=== PATIENT | female | born 1970 | race Caucasian/White ===

== ENCOUNTER 2017-12-25 06:17 | Day surgery (SDC) | payer OTHER ==
[2017-12-19 14:38] LABS: Absolute Lymphocytes (CBC) 1.9 K/uL (0.7-4.9); Absolute Monocytes 0.3 K/uL (0.1-1.3); Absolute Neutrophil 2.9 K/uL (1.8-8.0); Basophils % 0.8 % (0-1.3); Eosinophils % 1.7 % (0-4.4); Hematocrit 34.5 % (36.0-45.0); Lymphocytes % 35.9 % (15.3-44.8); MCH 25.2 pg (27.0-35.0); MCV 82.1 fL (80-100); MPV 8.7 fL (7.6-11.3); Monocytes % 6.5 % (3.3-12.3)
[~2017-12-25 06:17] MED LIST: CEFAZOLIN/SWI 2gm 2 GM/20 ML SYR IV SCH
[2017-12-25] MEDS ORDERED: Ringers Lactate 1,000 ML IV ONE ×2 (06:37→09:35)
[2017-12-25] MEDS ORDERED: SCOPOLAMINE HYDROBROMIDE PATCH TD ONE (06:37)
[2017-12-25] MEDS ORDERED: PROPOFOL 200 MG/20 ML VIAL IV ONE (07:00)
[2017-12-25] MEDS ORDERED: ROCURONIUM 50 MG/5 ML VIAL IV ONE (07:01)
[2017-12-25] MEDS ORDERED: GLYCOPYRROLATE 0.2 MG/ML SYR ONE (07:02)
[2017-12-25] MEDS ORDERED: FENTANYL CITR 250 MCG/5 ML ONE (07:02)
[2017-12-25] MEDS ORDERED: LIDOCAINE 2% MPF 5 ML VIAL ONE (07:02)
[2017-12-25] MEDS ORDERED: MIDAZOLAM HCL 2 MG/2 ML INJ ONE (07:03)
[2017-12-25] MEDS ORDERED: ONDANSETRON HCL 40 MG/20 ML VIAL ONE (07:05)
[2017-12-25] MEDS ORDERED: NEOSTIGMINE 1 MG/ML -5 ML SYRINGE ONE (07:05)
[2017-12-25] MEDS ORDERED: KETOROLAC 30 MG/ML INJ ONE (09:18)
[2017-12-25] MEDS: MEPERIDINE HCL 50 MG/ML AMP ONE ×4 (09:56→10:18)
[2017-12-25] MEDS ORDERED: MORPHINE 4 MG/ML SYR ONE (10:28)
[2017-12-25] MEDS ORDERED: HYDROCODONE/APAP 5/325 MG TAB ONE (11:12)
--- NOTE | 2017-12-26 02:10 | OP ---
Date of Procedure: 12/25/2017 Surgeon: Rekha Flores MD Time Broker: Anna Hurley. Preoperative Diagnoses: Heavy menstrual bleeding, dysmenorrhea, iron deficiency anemia due to chroni c blood loss. Postoperative Diagnoses: Heavy menstrual bleeding, dysmenorrhea, iron deficiency anemia due to chron ic blood loss, stage IV endometriosis and leiomyomata. Procedures Performed: 1.Diagnostic hysteroscopy. 2.Ablation with HTA. 3.Diagnostic laparoscopy, bilateral salpingectomy. 4.Drainage of right ovarian endometrioma and resection of endometriosis at the right tube. Anesthesia: General endotracheal. Estimated Blood Loss: Minimal. Specimens: Bilateral tubes and endometriosis on the right tube. Complications: No complications. Drains: No drains. Condition: The patient's condition stable. Findings: 1.Anterior abdominal wall with abdominoplasty. Supraumbilical incision was made, but abdominal entr y was tough. 2.Right ovarian endometrioma was seen, this was drained. 3.The right uterosacral ligament had endometriosis, which was adhered to the medial aspect of the ri ght ovary. Once this was detached, cauterization of the medial wall of the ovary was done to achieve hemostasis, was extremely difficult to peel off the cyst wall without taking the entire ovary down. There was endometriosis on the right lateral wall along the right ureter and this would need ureteri c dissection to separate the ovary from it and the patient has not been consented for procedures, ext ensive discussed. Then left uterosacral ligament and endometriosis as well, not dense at the right s elfego. The left ovary was free as well as the tube. The right tube was dense and adhered with proxima l tubal endometriosis and endometriosis on the right utero-ovarian ligament. The rectosigmoid that w as pulled superiorly starting to obliterated the posterior cul-de-sac and this rectosigmoid was pulle d up to area of the right uterosacral, mostly more medial to it likely from posterior cul-de-sac endo metriosis. The patient's bowel was not prepped at this time. Then, fibroids were seen both in the a nterior and posterior wall. Description Of Procedure: After informed consent was verified, the patient was taken back to the OR, 1 g of Ancef was given. She was placed in dorsal lithotomy position and general anesthesia was give n. Her arms were tucked by the side. Pelvic exam was performed. Uterus was found to be anteflexed. Slight decreased mobility. No other nodularity was appreciated at this time and no adnexal masses. Entire abdomen, vulva, vagina and perineum were prepped and draped in a sterile fashion. Pierce was p laced to drain the bladder. Cervix was exposed with a bivalve speculum anterior lip grasped with 2 A llis clamps. Cervix dilated to 10-Telugu. Then, using the primed HTA sheath, direct hysteroscopy wa s performed through the cervical canal into the uterine cavity. The cavity was empty. Both tubal os tia were well visualized. After positioning the tip of the scope in the center of the uterine cavity , the posterior fornix was packed with 2 Ray-Tecs, anterior Allis clipped onto the HTA sheath. Cavit y integrity test was done and it passed HTA, heating cycle followed by 10 minute ablation cycle and 1 .5 minutes cooling cycle were conducted with 1 interruption during the ablation cycle where there was tissue occlusion in the outflow tubing. Once this was corrected, the ablation was restarted without any delay. Thorough irrigation and suction of the uterine cavity were done with diagnostic hysteros copy, post ablation. There was an excellent burn in the entire uterine cavity. The scope was pulled out. Diagnostic VCare was introduced and set in place. After the Pierce was attached to the drainage bag this area was draped. A 1 cm supraumbilical incision was made. The choice was made due to the fact that the umbilicus appe ared to be at least 3 cm deep with pucker being tucked in for 5 minutes infraumbilical incision which is go through the skin fold over the umbilicus. So, 1.5 cm midline supraumbilical incision was made using the open laparoscopy technique. Fascia was exposed and incised. There were multiple layers o f the fascia. There was a permanent suture that had to be removed at this location in order for me t o get down to the lowest level of the fascia. Once this was incised the fascia layers were tagged wi th the help of a 0 Vicryl on each side. This was CT-2 needle. Peritoneum was entered bluntly and re tractors placed in the peritoneal cavity. Mariella was introduced. Site of entry was checked and was unremarkable. Upper abdominal surfaces inspected. No endometriosis was seen. The patient was place d in [place]. The left ovary and tube appeared to be free and normal. The uterus with fibroids. The left ureter undisplaced on the right side. Utero-ovarian ligament was shrunk. Distal uterosacral at tachment was to the uterus. The ureter was pulled lateral to this; however, there were endometriotic implants underneath over the course of the ureter on the pelvic peritoneum. There is cul-de-sac obli teration as dictated above as well as implants on the left uterosacral as well. There was hydrosalpi nx on the right side. There was endometriosis on the medial aspect of the tube and between the tube and the utero-ovarian ligament. The utero-ovarian ligament was shrunken from scar tissue. There was an endometrioma at the right outside of the ovarian capsule or just within it; however, this was drai fernanda. This was about 2.5 cm to 3 cm and this was drained chocolate colored fluid. The ovary was atte mpted to be dissected off from the medial aspect of the uterus and the uterosacral ligament. This wa s carefully taken down enough to able to completely evacuate the endometrioma. This was cauterized f or hemostasis. The adhesions between the tube and the medial aspect of the uterus as well as the utero-ovarian ligam ent and the ovary were all taken down with sharp dissection with scissors. Once this whole tube was r eleased, I was able to take it and starting the distal dissection near the fimbriated end, pineda swan came on to the tube and this was taken down from the medial aspect again and the entire tube was detached on the medial aspect of the tube and the specimen was placed in the anterior cul-de-sac. On the opposite side, the tube was free, so distally fimbriated end, dissection was started and taken al l the way to the cornual end and the tube was also placed in the anterior cul-de-sac. After taking an endometriosis and making sure that there was no electrical, mechanical or thermal injury to the uret er, decided not to remove the endometriosis because this was not the time to do this procedure withou t getting the consent and prepping the patient's bowel, so thorough irrigation and suction were perfo rmed. Both specimens were retrieved through the umbilical port after changing the 5 mm scope. All t rocars were removed under direct vision. There was excellent hemostasis. Mariella was removed after d esufflation was done. The fascia was closed with the help of 2-0 PDS sutures, 1 deep [id number] and the superficial [id number] layers for bringing together all different layers of the fascia were brought together with abdominoplasty. Then, the skin incisions were all closed with the help of 4-0 Monocryl sutures interrupted and VCare and Pierce were removed. Instrument, needle, and sponge c ounts x3 were correct in the case. The patient tolerated the procedure well. EBL was minimal. She was taken to PACU in stable condition. She has a 1 week follow up with me. TONO/HANNAH Voice ID: [id number] Report ID: [id number]
== END 2017-12-25 11:50 | disposition home or self-care (01) ==
LOC: OR 06:17
PROVIDERS: ATTEND Obstetrics & Gynecology
PROC: 0UB54ZZ Excision of Right Fallopian Tube, Percutaneous Endoscopic Approach (ICD-10-PCS; 2017-12-25)
PROC: 0UT74ZZ Resection of Bilateral Fallopian Tubes, Percutaneous Endoscopic Approach (ICD-10-PCS; principal; 2017-12-25 07:30)
PROC: 0U5B8ZZ Destruction of Endometrium, Via Natural or Artificial Opening Endoscopic (ICD-10-PCS; 2017-12-25 07:30)
PROC: 0U904ZX Drainage of Right Ovary, Percutaneous Endoscopic Approach, Diagnostic (ICD-10-PCS; 2017-12-25 07:30)
DX: N92.1 Excessive and frequent menstruation with irregular cycle (principal); N94.6 Dysmenorrhea, unspecified; N80.2 Endometriosis of fallopian tube; N80.1 Endometriosis of ovary; D25.9 Leiomyoma of uterus, unspecified; D50.0 Iron deficiency anemia secondary to blood loss (chronic); G47.33 Obstructive sleep apnea (adult) (pediatric); E78.5 Hyperlipidemia, unspecified; Z98.84 Bariatric surgery status; Z90.49 Acquired absence of other specified parts of digestive tract
CPT/HCPCS: 36415; 81025; 85025; 88302; J0690; J2175; J2250; J2405; J2710

== ENCOUNTER 2019-03-04 10:00 | Emergency (ER) | payer OTHER ==
--- OUTSIDE RECORDS SUMMARY | 2019-03-04 10:02 | XMS REPORT ---
:1970 Author Organization [employer] Care Team Providers Name Role Phone Nitesh Rowe Provider Role Unavailable Allergies No Known Allergies Problems Problem Type Condition Code Onset Dates Condition Status Problem Primary osteoarthritis of left knee M17.12 Active Medications No Known Medications Results No Known Results Summary Purpose eClinicalWorks Submission
--- OUTSIDE RECORDS SUMMARY | 2019-03-04 10:02 | XMS REPORT ---
:1970 Author Organization [employer] Care Team Providers Name Role Phone Nitesh Rowe Provider Role Unavailable Allergies No Known Allergies Problems No Known Problems Medications No Known Medications Results No Known Results Summary Purpose [employer]ClinicalWorks Submission
--- OUTSIDE RECORDS SUMMARY | 2019-03-04 10:02 | XMS REPORT ---
:1970 Author Organization [employer] Care Team Providers Name Role Phone Nitesh Rowe Provider Role Unavailable Allergies, Adverse Reactions, Alerts Substance Reaction Event Type N.K.D.A. Info Not Available Non Drug Allergy Problems Problem Type Condition Code Onset Dates Condition Status Assessment Tear of medial meniscus of left S83.242A Active knee, current, unspecified tear type, initial encounter Problem Primary osteoarthritis of left M17.12 Active knee Assessment Acute pain of left knee M25.562 Active Assessment Primary osteoarthritis of left M17.12 Active knee Medications Medication Code Code Instructions Start End Date Status Dosage System Date Lyndsay [facility] 95606436922 7.5 MG Orally Aug 05September 04, Active 1 tablet Once a day 2018 [address] [facility] 49632970422 10 MG Orally Aug 05, Active 1 tablet at Once a day 2019 bedtime as needed Results No Known Results Summary Purpose eClinicalWorks Submission
--- OUTSIDE RECORDS SUMMARY | 2019-03-04 10:02 | XMS REPORT ---
[...] Medications Medication Code Code Instructions Start End Status Dosage System Date Date Cyclobenzaprine ND 0 Active not HCl defined Ambien [facility] 65209472545 10 MG Orally Aug 05, Active 1 tablet Once a day 2018 at bedtime as needed Losartan Potassium [facility] [address]-92 Active not defined Orilissa [facility] [address]-31 Active not defined Tramadol HCl [facility] 25065598688 50 MG Orally September Active 1 tablet every 6 hrs , as needed 2018 Results No Known Results Summary Purpose eClinicalWorks Submission
--- OUTSIDE RECORDS SUMMARY | 2019-03-04 10:02 | XMS REPORT ---
:1970 Author Organization [employer] Care Team Providers Name Role Phone Nitesh Rowe Provider Role Unavailable Allergies, Adverse Reactions, Alerts Substance Reaction Event Type N.K.D.A. Info Not Available Non Drug Allergy Problems Problem Type Condition Code Onset Dates Condition Status Assessment Pain in joint of left knee M25.562 Active Assessment Pain in joint of left foot M25.572 Active Assessment Tear of medial meniscus of left S83.242A Active knee, current, unspecified tear type, initial encounter Assessment Plantar fasciitis of left foot M72.2 Active Medications Medication Code Code Instructions Start End Date Status Dosage System Date Lyndsay [facility] 49153143446 7.5 MG Orally Aug 05September 04, Active 1 tablet Once a day 2018 2018 [place] 53821621050 10 MG Orally Aug 05, Active 1 tablet at Once a day 2019 bedtime as needed Results Name Result Date Reference Range Unit Abnormality Flag MRI : Knee, left Summary Purpose eClinicalWorks Submission
--- OUTSIDE RECORDS SUMMARY | 2019-03-04 10:03 | XMS REPORT ---
:1970 Author Organization [employer] Care Team Providers Name Role Phone Nitesh Rowe Provider Role Unavailable Allergies, Adverse Reactions, Alerts Substance Reaction Event Type N.K.D.A. Info Not Available Non Drug Allergy Problems Problem Type Condition Code Onset Dates Condition Status Assessment Primary osteoarthritis of left knee M17.12 Active Problem Primary osteoarthritis of left knee M17.12 Active Medications Medication Code Code Instructions Start End Status Dosage System Date Date Losartan Potassium [facility] [address]-27 Active not defined Mobic [facility] 11507390881 7.5 MG Orally Active 1 tablet Once a day Orilissa [facility] [address]-35 Active not defined Cyclobenzaprine ND 0 Active not HCl defined Tramadol HCl [facility] 36760124830 50 MG Orally September Active 1 tablet every 6 hrs , as needed 2018 Ambien [facility] 62712714315 10 MG Orally Aug 05, Active 1 tablet Once a day 2019 at bedtime as needed Results No Known Results Summary Purpose eClinicalWorks Submission
--- OUTSIDE RECORDS SUMMARY | 2019-03-04 10:03 | XMS REPORT ---
[...] Start End Status Dosage System Date Date Orilissa [facility] [address]-96 Active not defined Tramadol HCl [facility] 85178986913 50 MG Orally September Active 1 tablet every 6 hrs , as needed 2018 Losartan Potassium [facility] [address]-37 Active not defined Cyclobenzaprine ND 0 Active not HCl defined Mobic [facility] 52951676188 7.5 MG Orally Active 1 tablet Once a day Ambien [facility] 27703247523 10 MG Orally Aug 05, Active 1 tablet Once a day 2019 at bedtime as needed Results No Known Results Summary Purpose eClinicalWorks Submission
--- OUTSIDE RECORDS SUMMARY | 2019-03-04 10:03 | XMS REPORT ---
:1970 Author Organization [employer] Care Team Providers Name Role Phone Nitesh Rowe Provider Role Unavailable Allergies, Adverse Reactions, Alerts Substance Reaction Event Type N.K.D.A. Info Not Available Non Drug Allergy Problems Problem Type Condition Code Onset Dates Condition Status Assessment Primary osteoarthritis of left knee M17.12 Active Problem Primary osteoarthritis of left knee M17.12 Active Assessment Pain in joint of left knee M25.562 Active Medications Medication Code Code Instructions Start End Status Dosage System Date Date Tramadol HCl [facility] 26508986348 50 MG Orally September Active 1 tablet every 6 hrs , as needed [address] [facility] [address]-57 Active not defined Cyclobenzaprine ND 0 Active not HCl defined Losartan Potassium [facility] [address]-33 Active not defined M[address] [facility] 97881103480 7.5 MG Orally Active 1 tablet Once a day Ambien [facility] 51293198293 10 MG Orally Aug 05, Active 1 tablet Once a day 2019 at bedtime as needed Results No Known Results Summary Purpose eClinicalWorks Submission
[2019-03-04] MEDS ORDERED: METHYLPREDNISOLONE 125 MG INJ ONE (10:24)
[2019-03-04] MEDS ORDERED: DIPHENHYDRAMINE 50 MG/ML VIAL ONE (10:24)
[2019-03-04] MEDS ORDERED: FAMOTIDINE 20 MG/2 ML VIAL IV ONE (10:24)
--- NOTE | 2019-03-04 11:07 | ER ---
Nurse's Notes [facility] Name: Edwige Castro Age: 48 yrs Sex: Female : 1970 Arrival Date: 03/04/2019 Time: 10:03 Bed 7 Private MD: Garfield Curtis B Diagnosis: Urticaria, unspecified Presentation: 03/04 10:11 Presenting complaint: Patient states: hives all over her body since Sunday, has been iw on bactrim since 02-03, amoxicillin since 02-24, was seen at PCP yesterday and started on prednisone and hydroxyzine and feels like rash is getting worse. Transition of care: patient was not received from another setting of care. Onset of symptoms was March 01, 2019. Initial Sepsis Screen: Does the patient meet any 2 criteria? No. Patient's initial sepsis screen is negative. Does the patient have a suspected source of infection? No. Patient's initial sepsis screen is negative. 10:11 Method Of Arrival: Ambulatory iw 10:11 Acuity: LORIN 3 iw 10:20 Risk Assessment: Do you want to hurt yourself or someone else? Patient reports no aa5 desire to harm self or others. Care prior to arrival: None. Historical: - Allergies: 10:20 Augmentin; aa5 - Home Meds: 10:20 atorvastatin oral oral [Active]; losartan oral oral [Active]; Ambien Oral nightly aa5 [Active]; - PMHx: 10:20 Hyperlipidemia; Hypertension; aa5 - PSHx: 10:20 liposuction; Cholecystectomy; Gastric Bypass; ankle; neck; aa5 - Ebola Screening: : No symptoms or risks identified at this time. - Family history:: not pertinent. - Hospitalizations: : No recent hospitalization is reported. Screenin:19 Abuse screen: Denies threats or abuse. Nutritional screening: No deficits noted. aa5 Tuberculosis screening: No symptoms or risk factors identified. Fall Risk None identified. Assessment: 10:20 General: Appears comfortable, Behavior is calm, cooperative. Pain: Denies pain. Neuro: aa5 Level of Consciousness is awake, alert, obeys commands, Oriented to person, place, time, situation. Cardiovascular: Heart tones S1 S2 present Rhythm is regular. Respiratory: Airway is patent Respiratory effort is even, unlabored, Respiratory pattern is regular, symmetrical, Breath sounds are clear bilaterally. GI: No signs and/or symptoms were reported involving the gastrointestinal system. : No signs and/or symptoms were reported regarding the genitourinary system. EENT: No signs and/or symptoms were reported regarding the EENT system. Derm: Skin is pink, warm \\T\\ dry. Hives noted to landy arms, legs, feet, chest, and back that are itchy. Musculoskeletal: Range of motion: intact in all extremities. 10:20 Reassessment: Pt states "they took me off the Augmentin yesterday when I went to the aa5 doctor, they had given it to me for a stomach bug because I had some stomach pain and diarrhea" . Vital Signs: 10:12 BP 103 / 82; Pulse 81; Resp 16 S; Pulse Ox 97% on R/A; aa5 10:21 BP 112 / 66; Pulse 77; Resp 18 S; Pulse Ox 97% on R/A; aa5 10:30 Temp 98.1(O); aa5 11:19 BP 115 / 76; Pulse 71; Resp 16; Pulse Ox 98% on R/A; la1 ED Course: 10:03 Patient arrived in ED. mr 10:03 Garfield Curtis MD is Private Physician. mr 10:06 Areli Talbert, LEIGHTON is Primary Nurse. aa5 10:08 Bakari Mariee MD is Attending Physician. rn 10:11 Arm band placed on Patient placed in an exam room, on a stretcher. aa5 10:11 Patient has correct armband on for positive identification. Bed in low position. Call aa5 light in reach. Side rails up X2. Adult w/ patient. 10:13 Triage completed. iw 10:25 Inserted saline lock: 22 gauge in left hand, using aseptic technique. aa5 11:19 No provider procedures requiring assistance completed. IV discontinued, intact, la1 bleeding controlled, No redness/swelling at site. Pressure dressing applied. Administered Medications: 10:25 Drug: SOLU-Medrol 125 mg Route: IVP; Site: left hand; aa5 10:35 Follow up: Response: No adverse reaction aa5 10:26 Drug: Benadryl 50 mg Route: IVP; Site: left hand; aa5 10:35 Follow up: Response: No adverse reaction aa5 10:27 Drug: Pepcid 20 mg Route: IVP; Site: left hand; aa5 10:35 Follow up: Response: No adverse reaction aa5 Outcome: 11:06 Discharge ordered by . rn 11:19 Discharged to home ambulatory. la1 11:19 Condition: stable 11:19 Discharge instructions given to patient, Instructed on discharge instructions, follow up and referral plans. medication usage, Demonstrated understanding of instructions, follow-up care, medications, Prescriptions given X 1. 11:20 Patient left the ED. la1 Signatures: Dee Crane Irene, RN [place] iw Bakari Mariee MD MD rn Calderon, Audri, RN RN aa5 Talha Mancuso RN RN la1 Corrections: (The following items were deleted from the chart) 10:20 10:12 BP 103 / 92; Pulse 81bpm; Resp 16bpm; Spontaneous; Pulse Ox 97% RA; aa5 aa5
--- NOTE | 2019-03-04 11:08 | EDPHYS ---
Physician Documentation [facility] Name: Edwige Castro Age: 48 yrs Sex: Female : 1970 Arrival Date: 03/04/2019 Time: 10:03 Bed 7 Private MD: Garfield Curtis B ED Physician Bakari Mariee HPI: 03/04 10:35 This 48 yrs old Female presents to ER via Ambulatory with complaints of rn Allergic Reaction. 10:35 The patient presents with itching, rash. rn 10:35 Onset: The symptoms/episode began/occurred 4 day(s) ago. Associated signs and symptoms: rn Pertinent positives: hives. Possible causes: The patient has no known obvious cause for the symptoms, Severity of symptoms: At their worst the symptoms were moderate in the emergency department the symptoms are unchanged. The patient has not experienced similar symptoms in the past. The patient has been recently seen by a physician:. 10:36 Reports recent abx for chills and diarrhea, broke out in rash and itching, seen by pcp kartik yesterday, stopped meds and given 40mg prednisone and hydroxyzine, states not making it go away. No new symptoms. NO other new exposures. . Historical: - Allergies: 10:20 Augmentin; aa5 - Home Meds: 10:20 atorvastatin oral oral [Active]; losartan oral oral [Active]; Ambien Oral nightly aa5 [Active]; - PMHx: 10:20 Hyperlipidemia; Hypertension; aa5 - PSHx: 10:20 liposuction; Cholecystectomy; Gastric Bypass; ankle; neck; aa5 - Ebola Screening: : No symptoms or risks identified at this time. - Family history:: not pertinent. - Hospitalizations: : No recent hospitalization is reported. ROS: 10:36 Constitutional: Negative for fever, chills, and weight loss, Eyes: Negative for injury, rn pain, redness, and discharge, Neck: Negative for injury, pain, and swelling, Cardiovascular: Negative for chest pain, palpitations, and edema, Respiratory: Negative for shortness of breath, cough, wheezing, and pleuritic chest pain, Abdomen/GI: Negative for abdominal pain, nausea, vomiting, diarrhea, and constipation, MS/Extremity: Negative for injury and deformity, Skin: + urticaria and itching Neuro: Negative for headache, weakness, numbness, tingling, and seizure. Exam: 10:38 Constitutional: This is a well developed, well nourished patient who is awake, alert, rn and in no acute distress. Head/Face: Normocephalic, atraumatic. Eyes: Pupils equal round and reactive to light, extra-ocular motions intact. Lids and lashes normal. Conjunctiva and sclera are non-icteric and not injected. Cornea within normal limits. Periorbital areas with no swelling, redness, or edema. ENT: No oral lesions, no swelling Cardiovascular: Regular rate and rhythm. No pulse deficits. Respiratory: No wheezing. No increased work of breathing, no retractions or nasal flaring. Skin: + diffuse urticaria, no bullae or sloughing. MS/ Extremity: Pulses equal, no cyanosis. Neurovascular intact. Full, normal range of motion. Equal circumference. Neuro: Awake and alert, GCS 15, oriented to person, place, time, and situation. Cranial nerves II-XII grossly intact. Motor strength 5/5 in all extremities. Sensory grossly intact. Cerebellar exam normal. Normal gait. Vital Signs: 10:12 BP 103 / 82; Pulse 81; Resp 16 S; Pulse Ox 97% on R/A; aa5 10:21 BP 112 / 66; Pulse 77; Resp 18 S; Pulse Ox 97% on R/A; aa5 10:30 Temp 98.1(O); aa5 11:19 BP 115 / 76; Pulse 71; Resp 16; Pulse Ox 98% on R/A; la1 MDM: 10:08 Patient medically screened. rn 11:05 Differential diagnosis: urticaria. Data reviewed: vital signs, nurses notes, and as a rn result, I will discharge patient. Counseling: I had a detailed discussion with the patient and/or guardian regarding: the historical points, exam findings, and any diagnostic results supporting the discharge/admit diagnosis, the need for outpatient follow up, to return to the emergency department if symptoms worsen or persist or if there are any questions or concerns that arise at home. Special discussion: I discussed with the patient/guardian in detail that at this point there is no indication for admission to the hospital. It is understood, however, that if the symptoms persist or worsen the patient needs to return immediately for re-evaluation. 11:06 ED course: Will increase prednisone to 60mg/day.. kartik 03/04 10:18 Order name: IV Start; Complete Time: 10:32 rn Administered Medications: 10:25 Drug: SOLU-Medrol 125 mg Route: IVP; Site: left hand; aa5 10:35 Follow up: Response: No adverse reaction aa5 10:26 Drug: Benadryl 50 mg Route: IVP; Site: left hand; aa5 10:35 Follow up: Response: No adverse reaction aa5 10:27 Drug: Pepcid 20 mg Route: IVP; Site: left hand; aa5 10:35 Follow up: Response: No adverse reaction aa5 Disposition: 03/04/19 11:06 Discharged to Home. Impression: Urticaria, unspecified. - Condition is Stable. - Discharge Instructions: Hives. - Prescriptions for Prednisone 20 mg Oral Tablet - take 3 tablet by ORAL route once daily for 5 days; 15 tablet. - Medication Reconciliation Form, Thank You Letter, Antibiotic Education, Prescription Opioid Use form. - Follow up: Private Physician; When: As needed; Reason: Recheck today's complaints, Re-evaluation by your physician. - Problem is new. - Symptoms have improved. Signatures: Bakari Mariee MD MD rn Calderon, Audri RN RN aa5 Talha Mancuso RN RN la1 Corrections: (The following items were deleted from the chart) 10:39 10:36 Constitutional: Negative for fever, chills, and weight loss, rn rn 11:20 11:06 03/04/2019 11:06 Discharged to Home. Impression: Urticaria, unspecified. la1 Condition is Stable. Forms are Medication Reconciliation Form, Thank You Letter, Antibiotic Education, Prescription Opioid Use. Follow up: Private Physician; When: As needed; Reason: Recheck today's complaints, Re-evaluation by your physician. Problem is new. Symptoms have improved. rn
[2019-03-04 11:32] VITALS: TEMP 98.1
[2019-03-04 11:33] VITALS: BP 115/76; O2SAT 98
== END 2019-03-04 11:20 | disposition home or self-care (01) ==
LOC: ER 10:00
DX: L50.9 Urticaria, unspecified (principal); I10 Essential (primary) hypertension; E78.5 Hyperlipidemia, unspecified; Z88.1 Allergy status to other antibiotic agents
CPT/HCPCS: 96374; 96375; 99283; J2930